=== PATIENT | female | born 1985 | race Caucasian/White ===

== ENCOUNTER 2022-06-25 03:42 | Inpatient (IN) ==
[2022-06-25] MEDS ORDERED: LACTATED RINGER'S 1,000 ML IV PRN (04:30)
[2022-06-25] MEDS ORDERED: OXYTOCIN 30 UNITS/500 ML BAG IV PRN ×2 (04:30→09:15)
--- NOTE | 2022-06-25 04:51 | History & Physical Report ---
Date of Service June 25, 2022 Assessment & Plan (1) Active labor at term: Plan Admit, iv, labs. Pt wants minimal cx check and intervention. Does not want arom. FHTs categ 1. Anticip . Admission and Anticipated Discharge Date Admission Date: June 25, 2022 History of Present Illness Chief Complaint: contractions Primary Care Provider: NO PCP 36yo at 40+wks blank[place] presents to L&D with regular ctx. Called this am with ctx q2-3min. No rom. No vb. +FM. Nursing cx check 5-6cm. PNC c/b 1. rh neg, had rhogam, eval pp PNL rh neg, ri, gbs neg OBH: x 1. sab with D&E GYNH: nl paps, no stds Allergies Allergy/AdvReac Type Severity Reaction Status Date / Time No Known Allergies Allergy Verified 06/24/22 08:40 Home Medications Medication Instructions Recorded Confirmed Type prenat.vits,yran,vlh-nhsf-lljyd 1 tab PO DAILY 11/11/21 06/25/22 History Patient History Medical History (Updated 06/25/22 @ 04:53 by Mayda Ruiz MD, FACOG) History of chicken pox Surgical History (Updated 11/11/21 @ 15:30 by Ana Palacios) S/P dilatation and curettage Family History (Updated 11/11/21 @ 15:32 by Ana Palacios) Grandfather (Paternal) Colorectal cancer Grandmother (Maternal) Diabetes Father Aortic dissection Hypertension Mother H/O heart artery stent Hypertension Denies family history of Ovarian cancer Breast cancer Social History (Updated 11/11/21 @ 15:34 by Ana Palacios) Smoking Status: Never smoker Hx Alcohol Use: No Hx Substance Use: No Preferred Language: Greenlandic Communication Ability: Effective [place] Court Justice Required: No Beliefs That Will Affect Care: None marital status: marital status details: Pascual Oates [phone] Current Living Situation: Family Current Living Situation Comment: lives with spouse, son, dog current occupational status: employed 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 Other Information That Helps Us Care for You: No Feels Safe at Home: Yes Safety Concerns: Feels Safe At This Time Review of Systems as per Subjective / HPI Physical Exam Constitutional: WD/WN, vitals as above Genitourinary: Manual OB Exam: + cervical dilation (5-6cm ) and + cervical effacement (per nurse) 80% OB Exam Monitor Tracing: + external FHT monitor used, + external uterine monitor used (q2-3), + category I, + normal FHT variability and + early decelerations present [facility] ([facility]) Vital Signs (Past 12 Hours) Vital Signs Temp Pulse Resp BP 06/25/22 04:36 97.7 F 18 06/25/22 04:16 73 117/77 Code Status & VTE Plan VTE Prophylaxis Plan VTE Prophylaxis will be ordered: No Coding Level of Care Code None Diagnoses Active labor at term
[2022-06-25 05:06] LABS: Hematocrit (blood only) 35.2 % (34.1-44.9); Hemoglobin 12.2 g/dl (12.0-16.0); Mean Corpuscular Hgb Conc 34.7 g/dL (32.0-36.0); Mean Corpuscular Volume 92.4 fL (80.0-100.0); Mean Platelet Volume 10.1 fL (9.4-12.3); Platelet Count 182 K/uL (130-400); RDW Coefficient of Variation 13.2 % (11.5-14.5); RDW Standard Deviation 44.6 fL (36.4-46.3); Red Blood Count 3.81 M/uL (3.93-5.22); White Blood Count 8.07 K/ul (4.8-10.8)
--- NOTE | 2022-06-25 05:41 | Labor Progress Brief Note ---
Date of Service June 25, 2022 Subjective called to see pt as requested arom Assessment & Plan (1) Active labor at term: Plan variables noted and explained to pt difficult to have her off monitor completely. arom done after informed consent. will see how that helps progress labor. in the end, that is what pt and partner decided. Admission and Anticipated Discharge Date Admission Date: June 25, 2022 Physical Exam Constitutional: WD/WN, vitals as above Respiratory: normal respiratory effort, lungs clear to auscultation Cardiovascular: Rate/Rhythm: regular rate and regular rhythm Gastrointestinal (Abdomen): soft gravid nt Musculoskeletal: no edema Neurologic: grossly normal Psychiatric: A+Ox3, euthymic affect Genitourinary: Manual OB Exam: + cervical dilation 5 cm, + cervical effacement 90%, + station -1 and + amniotic fluid (arom) clear OB Exam Monitor Tracing: + external FHT monitor used, + external uterine monitor used (q2-3), + category II (occas variable) and + normal FHT variability Results & Data ([facility]) Vital Signs (Past 12 Hours) Vital Signs Temp Pulse Resp BP 06/25/22 04:36 97.7 F 18 06/25/22 04:16 97.7 F 73 18 117/77 Coding Level of Care Code None Diagnoses Active labor at term
[2022-06-25] MEDS ORDERED: LIDOCAINE 1% LOCAL 20 ML VIAL ONE (08:57)
--- NOTE | 2022-06-25 09:13 | Delivery Summary ---
Vaginal Delivery Summary Date of Service June 25, 2022 Vaginal Delivery Summary and 2nd Degree LAC PREOPERATIVE DIAGNOSIS: 1. Single intrauterine at 40 3/7 2. Labor POSTOPERATIVE DIAGNOSIS: 1. Single intrauterine at 40 3/7 2. Labor 3. Delivered PROCEDURE: 1. Normal spontaneous vaginal delivery. SURGEON: Vida Garduno MD ANESTHESIA: Local ESTIMATED BLOOD LOSS: 300 mL FLUIDS: Continuous LR. URINE OUTPUT: None. COMPLICATIONS: None. CONDITION: Stable. INDICATIONS: 36 y/o at 40 3/7 wga presented early his morning with contractions. Found to be 5cm on arrival and admitted. She continued to progress spontaneously however there were few variables noted and so was counseled regarding AROM and amenable to it. Following arom, this improved and she continued to progress to complete and desired to push. FINDINGS: A viable male infant, weight pending with Apgars of 8 and 8 at 1 and 5 minutes respectively. SPECIMEN: Cord blood, placenta OPERATIVE REPORT: The patient progressed to 10 cm, 100% effaced and +2 station, pushed over intact perineum with anesthesia to deliver a viable male , weight and Apgars as above. Head of delivered in CRYSTAL position. No nuchal cord was present. Body and shoulders were delivered without difficulty. was delivered to maternal abdomen and nursing staff. Delayed cord clamping was performed for >60 seconds. Cord was clamped and cut. Cord blood was obtained. Placenta delivered spontaneously intact with 3-vessel cord. IV oxytocin and fundal massage were given for excellent hemostasis. Vagina, cervix, perineum, and placenta were inspected. Second degree laceration was noted and repaired in the usual fashion using 3-0 vicryl. Sponge and needle counts correct x2. No sponges were left behind. Mother and stable in immediate period. [facility] [place] Vaginal Delivery Charge Vaginal Delivery Codes: 88522 global code for the antepartum, delivery, and post- Delivery Type Details: and 2nd Degree LAC
[2022-06-25] MEDS ORDERED: DIPHTHERIA/TETANUS/PERTUSSIS 0.5 ML SYR/VIAL IM ONE (09:15)
[2022-06-25] MEDS ORDERED: BENZOCAINE 20% AER SPR 82.5 GM CAN EXT PRN (09:15)
[2022-06-25] MEDS ORDERED: HYDROCORTISONE ACETATE 25 MG SUPP PR PRN (09:15)
[2022-06-25] MEDS ORDERED: ACETAMINOPHEN 325 MG TAB PO PRN (09:15)
[2022-06-25] MEDS ORDERED: bisacodyL 10 MG SUPP PR PRN (09:15)
[2022-06-25] MEDS: DOCUSATE SODIUM 100 MG CAP PO SCH (20:49)
[2022-06-25] MEDS: IBUPROFEN 600 MG TAB PO PRN (21:27)
--- NOTE | 2022-06-25 21:35 | Communication Note ---
Date of Service: June 25, 2022 Nursing reported to me that while I attending to another pt, this pt reported having slight chest/rib discomfort when she got up to go to the bathroom and it had resolved. Vital signs at that time were wnl. She notes that she intermittently has it when she is leaning over at the bedside or bending over to do things with the baby, or slightly leaned forward on the toilet. When sitting/standing straight up or leaning back does not have it. Denies SOB. Has not taken any medication for it. Will get EKG, discussed heat/ice, ibuprofen/tylenol. will continue to monitor
[2022-06-26] MEDS: IBUPROFEN 600 MG TAB PO PRN (04:18)
--- NOTE | 2022-06-26 06:26 | Obstetrical Progress Note ---
Date of Service <Eugenia Morales DO - Last Filed: 06/26/22 06:26> June 26, 2022 Assessment & Plan <Eugenia Lilliana Morales DO - Last Filed: 06/26/22 06:26> (1) : Patient is PPD 1 s/p and doing well. She is Rh neg. - Feels well today. Eating well, voiding well, ambulating well - Pain well controlled with ibuprofen 600 mg Q4H PRN - OOB, ambulation, diet progression as tolerated - Plan to discharge today at 24 hours post delivery - After discharge, 6 [address] follow up with Dr[address] Garduno <Vida Garduno MD - Last Filed: 06/26/22 07:20> (1) : Subjective <Eugenia LesterStephen DO Carmen - Last Filed: 06/26/22 06:26> Jaymie Oates is a 36 yo female who is now PPD #1 following spontaneous vaginal delivery at 40 weeks. Reports feeling well this morning. Endorses abdominal cramping while breast feeding and 0/10 pain today. She was having some chest pain yesterday associated with leaning forward and standing up but this has since resolved. Voiding well. Tolerating meals overnight and able to ambulate some. Endorses passing gas and bowel movements. Some persistent lochia with some improvement this morning. Currently breast feeding. Review of Systems Denies fever, chills, sweats. Denies SOB, difficulty breathing, chest pain, palpitations, and chest pressure. Denies breast pain. Denies dysuria. Denies headache or changes in vision. Physical Exam <Eugenia Morales DO - Last Filed: 06/26/22 06:26> General: Alert and oriented. No acute distress. CV: Regular rate and rhythm. No murmurs. Respiratory: CTA bilaterally. No rhonchi, wheezes, or crackles. No increased work of breathing. Abdomen: Positive bowel sounds. Soft, nontender, non distended. Uterus: Fundus firm and palpable 2 cm below the umbilicus. Lower extremities: No LE edema. No deep calf pain. Melani's negative bilaterally. Results & Data ([facility]) <Eugenia Morales DO - Last Filed: 06/26/22 06:26> Vital Signs (Past 12 Hours) Vital Signs Temp Pulse Resp BP Pulse Ox O2 Del Method 06/26/22 04:10 36.6 C 72 16 100/67 98 Room Air 06/26/22 00:15 36.6 C 70 17 114/74 98 Room Air 06/25/22 19:25 Room Air 06/25/22 19:25 36.9 C 79 16 126/84 97 Room Air <Vida Garduno MD - Last Filed: 06/26/22 07:20> Co-Signing Physician Notes Resident Physician Supervision Note: I interviewed and examined the patient. Discussed with Dr. Morales and agree with findings and plan as documented in the note. Any exceptions or clarifications are listed here: PP1 s/p , doing well. The intermittent positional chest pain from last night has resolved. VSS, exam benign and wnl. Meeting all pp milestones, stable for d/c home today Documented By: Vida Garduno MD Resident Activity Tracking <Eugenia Morales DO - Last Filed: 06/26/22 06:26> Resident Involvement: Resident Care Provided Care Provided: OB Delivery
[2022-06-26] MEDS ORDERED: FERROUS SULFATE 325 MG TAB PO SCH (08:00)
[2022-06-26] MEDS ORDERED: PRENATAL VITAMIN 1 TAB PO SCH (08:00)
[2022-06-26] MEDS: DOCUSATE SODIUM 100 MG CAP PO SCH (08:45)
[2022-06-26] MEDS ORDERED: bisacodyL 5 MG TABEC PO SCH (20:00)
--- NOTE | 2022-06-27 18:28 | Electrocardiogram Report ---
Test Reason : Blood Pressure : / mmHG Vent. Rate : 063 BPM Atrial Rate : 063 BPM P-R Int : 134 ms QRS Dur : 084 ms QT Int : 390 ms P-R-T Axes : 046 098 049 degrees QTc Int : 399 ms Normal sinus rhythm with sinus arrhythmia Rightward axis Low voltage QRS Borderline ECG No previous ECGs available Confirmed by Asif Thurman ([id number]) on 06/27/2022 6:28:20 PM Referred By: Mayda Ruiz Confirmed By:Asif Thurman
== END 2022-06-26 11:50 | disposition home or self-care (01) | DRG 807 ==
LOC: OPB 03:42 → 4S1 04:02 → 4E2 11:37